=== PATIENT | female | born 1960 | race Caucasian/White ===

== ENCOUNTER → 2017-06-14 | Outpatient (CLI) | payer MEDICAID ==
--- NOTE | 2017-06-14 14:08 | Diagnostic Imaging Report ---
PROCEDURE: CT chest without contrast. TECHNIQUE: Multiple contiguous axial images were obtained through the chest without the use of intravenous contrast. INDICATION: Emphysema with left chest pain. FINDINGS: There is obstructive interstitial lung disease present. There is some scarring noted in the lung bases bilaterally. No evidence of bronchiectasis. No cystic bullous changes noted. No consolidated infiltrates are present. No parenchymal masses are demonstrated. No mediastinal or hilar adenopathy of pathologic size is demonstrated. The aortic root measures 3.6 cm. No pleural effusions or pericardial effusions. There are bilateral breast implants. Left implant does appear to be ruptured and collapsed. No bony lesions demonstrated. IMPRESSION: 1. Obstructive interstitial lung disease with no acute infiltrates noted. There is some linear scarring or atelectasis in the lung bases bilaterally. 2. Findings consistent with breast implant rupture on the left. Dictated by: Dictated on workstation # [id number]
== END ==
LOC: RAD 13:10
PROVIDERS: ATTEND Nurse Practitioner Family
DX: J84.9 Interstitial pulmonary disease, unspecified (principal); T85.43XA Leakage of breast prosthesis and implant, initial encounter
CPT/HCPCS: 71250